=== PATIENT | female | born 1965 | race Caucasian/White ===

== ENCOUNTER 2017-02-20 18:13 | Emergency (ER) | payer OTHER ==
[~2017-02-20] VITALS: Ht 165.1 cm; Wt 105.3 kg
[~2017-02-20 18:13] MED LIST: AMLO10TA2 PO; AMLO5TAB2 PO; GABA300C10 PO; LISI1TAB5 PO; LISI1TAB7 PO; METF10002 PO; METF500T4 PO; PRAV10TA2 PO; PROP40TA PO
--- NOTE | 2017-02-20 18:32 | NUR ---
patient to er room 4 with c/o back pain that shoots down both legs patient denies falls or injury
--- NOTE | 2017-02-20 18:41 | NUR ---
dr levine in room bedside glucose resulted at 344
[2017-02-20] MEDS ORDERED: CATAPRES PO STA (18:45)
[2017-02-20] MEDS ORDERED: NORFLEX IM STA (18:45)
--- NOTE | 2017-02-20 18:48 | ER.PDOC ---
General Chief Complaint: Lower Back Pain or Injury Stated Complaint: BACK PAIN Time seen by MD: 18:38 Source: patient Exam Limitations: no limitations History of Present Illness Initial Comments Pt started with back pain about 10 days ago, after a twisting movement. She also has diabetes and HTN, for which at the moment is not taking any medications Timing/Duration: week Severity/Quality: severe, radiation (RLE) Radiation: buttocks, upper legs, lower legs Method of Injury: twisted Associated Symptoms: muscle spasms, lower back pain Allergies: Coded Allergies: No Known Allergies (Unverified , 11/27/13) Home Meds Reported Medications Pravastatin Sodium (PRAVASTATIN SODIUM) 10 Mg Tablet, 10 MG PO HS, TABLET 03/24/14 Lisinopril/Hydrochlorothiazide (LISINOPRIL-HCTZ 20-25 MG TAB) 1 Each Tablet, 1 EACH PO DAILY, TABLET 03/24/14 Amlodipine Besylate (AMLODIPINE BESYLATE) 10 Mg Tablet, 10 MG PO DAILY, TABLET 03/24/14 Amlodipine Besylate (AMLODIPINE BESYLATE) 5 Mg Tablet, 5 MG PO DAILY, TABLET 03/24/14 Lisinopril/Hydrochlorothiazide (LISINOPRIL-HCTZ 20-12.5 MG TAB) 1 Each Tablet, 2 EACH PO DAILY, TABLET 03/24/14 Metformin Hcl (METFORMIN HCL) 1,000 Mg Tablet, 1000 MG PO BID, TABLET 03/24/14 Metformin Hcl (METFORMIN HCL) 500 Mg Tablet, 500 MG PO BID, TABLET 03/24/14 Propranolol Hcl (PROPRANOLOL HCL) 40 Mg Tablet, 40 MG PO BID, TABLET 03/24/14 Gabapentin (GABAPENTIN) 300 Mg Capsule, 300 MG PO HS, CAPSULE 03/24/14 Past Medical History Medical History: diabetes, hypertension Surgical History: appendectomy, hysterectomy Social History Smoking: non-smoker Alcohol Use: none Drug Use: none Review of Systems Constitutional: see HPI EENTM: see HPI Respiratory: see HPI Cardiovascular: see HPI Gastrointestinal: see HPI Genitourinary: see HPI Musculoskeletal: see HPI Skin: see HPI Psychiatric/Neurological: see HPI Physical Exam General Appearance: No Apparent Distress, WD/WN HEENT: PERRL/EOMI, Normal ENT Inspection, TMs Normal, Pharynx Normal Neck: Non-Tender, Normal Alignment Cardiovascular/Respiratory: Regular Rate, Rhythm, No M/R/G, Normal Peripheral Pulses, No JVD, Normal Breath Sounds, No Respiratory Distress Gastrointestinal: Normal Bowel Sounds, No Organomegaly, No Pulsatile Mass, Non Tender, Soft Back: CVA Tenderness (R), Decreased Range Of Motion, Muscle Spasm, Other (SLRM positive at 10 degrees) Extremities: No Evidence of Injury, Normal Range of Motion, Non-Tender, No Pedal Edema, Pelvis Stable Neuro/Psych: Alert, mental health practitioner nml/symmetrical, mood/effect nml, No Motor/Sensory Deficits, Relexes nml Skin: Normal Color, Warm/Dry Results/Orders Results/Orders Laboratory Tests Test 02/20/17 18:40 Bedside Glucose 344 (70 - 110) Administered Medications Medications (Trade) Dose Ordered Sig/Shahrzad Route PRN Reason Start Time Stop Time Status Last Admin Dose Admin Ketorolac Tromethamine (Toradol) 60 mg OT ONCE IM 02/20/17 19:00 02/20/17 19:01 DC 02/20/17 19:02 Orphenadrine Citrate (Norflex) 60 mg STAT STAT IM 02/20/17 18:45 02/20/17 18:47 DC 02/20/17 18:57 Clonidine (Catapres) 0.2 mg STAT STAT PO 02/20/17 18:45 02/20/17 18:47 DC 02/20/17 18:58 Departure Time of Disposition: 19:19 Disposition: 01 HOME, SELF-CARE Impression: Primary Impression: Low back pain Additional Impression: Lumbar sprain Condition: Stable Patient Instructions: Back Pain, Adult, [id number] Referrals: LISA EARZO EQUIPMENT OPERATING ENGINEER (PCP) PRIMARY CARE PROVIDER Problem Qualifiers LES GARCIA MD February 20, 2017 18:48
[2017-02-20] MEDS ORDERED: NORFLEX ONE (18:49)
[2017-02-20] MEDS ORDERED: CATAPRES ONE (18:49)
[2017-02-20] MEDS ORDERED: TORADOL ONE (18:49)
[2017-02-20] MEDS ORDERED: TORADOL IM ONE (19:00)
[2017-02-20 20:13] VITALS: BP 192/118
== END 2017-02-20 20:14 | disposition home or self-care (01) ==
LOC: ER 18:13
DX: S33.5XXA Sprain of ligaments of lumbar spine, initial encounter (principal); E11.9 Type 2 diabetes mellitus without complications; I10 Essential (primary) hypertension; Z79.899 Other long term (current) drug therapy; X50.1XXA Overexertion from prolonged static or awkward postures, initial encounter; Y93.89 Activity, other specified; Y92.89 Other specified places as the place of occurrence of the external cause; Y99.8 Other external cause status
CPT/HCPCS: 82948; 96372 ×2; 99284; J1885; J2360

== ENCOUNTER 2017-08-05 10:09 | Emergency (ER) | payer OTHER ==
[~2017-08-05] VITALS: Ht 165.1 cm; Wt 104.3 kg
--- NOTE | 2017-08-05 10:28 | NUR ---
[facility]IVAL PATIENT ARRIVED TO ED4 AMBULATORY, C/O OF LEFT EYE SWELLING SINCE GETTING OUT OF BED THIS MORNING, DENIES ANY INJURY, VISION BLURRY AT TIMES. NO OTHER COMPLAINTS AT THIS TIME.
--- NOTE | 2017-08-05 10:42 | ER.PDOC ---
General Chief Complaint: Eye Problems Stated Complaint: LEFT EYE TROUBLE Time seen by MD: 10:32 Source: patient Exam Limitations: no limitations History of Present Illness Initial Comments Left upper eyelid swelling and painful this morning Timing/Duration: abrupt Location: right eye Severity: moderate Allergies: Coded Allergies: No Known Allergies (Unverified , 11/27/13) Home Meds Reported Medications Pravastatin Sodium (PRAVASTATIN SODIUM) 10 Mg Tablet, 10 MG PO HS, TABLET 03/24/14 Lisinopril/Hydrochlorothiazide (LISINOPRIL-HCTZ 20-25 MG TAB) 1 Each Tablet, 1 EACH PO DAILY, TABLET 03/24/14 Amlodipine Besylate (AMLODIPINE BESYLATE) 10 Mg Tablet, 10 MG PO DAILY, TABLET 03/24/14 Amlodipine Besylate (AMLODIPINE BESYLATE) 5 Mg Tablet, 5 MG PO DAILY, TABLET 03/24/14 Lisinopril/Hydrochlorothiazide (LISINOPRIL-HCTZ 20-12.5 MG TAB) 1 Each Tablet, 2 EACH PO DAILY, TABLET 03/24/14 Metformin Hcl (METFORMIN HCL) 1,000 Mg Tablet, 1000 MG PO BID, TABLET 03/24/14 Metformin Hcl (METFORMIN HCL) 500 Mg Tablet, 500 MG PO BID, TABLET 03/24/14 Propranolol Hcl (PROPRANOLOL HCL) 40 Mg Tablet, 40 MG PO BID, TABLET 03/24/14 Gabapentin (GABAPENTIN) 300 Mg Capsule, 300 MG PO HS, CAPSULE 03/24/14 Past Medical History Medical History: diabetes, high cholesterol, hypertension Surgical History: appendectomy, hysterectomy Social History Smoking: non-smoker Alcohol Use: none Drug Use: none Constitutional: no symptoms reported Eyes: see HPI Respiratory: no symptoms reported Cardiovascular: no symptoms reported Gastrointestinal: no symptoms reported Musculoskeletal: no symptoms reported All Other Systems: Reviewed and Negative Physical Exam General Appearance: alert, no distress Eyelid: (L) edema (upper without eye discharge or redness. Mildly tender to palpation.) Conjunctiva/Sclera: nml inspection Corneas: nml inspection EOM's: intact, no nystagmus Pupils: PERRL, nml accommodation Neck/Back: nml inspection, painless ROM Resp/CVS: no resp distress, lungs clear, heart sounds nml, reg. rate & rhythm Abdomen: non-tender, no organomegaly NEURO/PSYCH: oriented X3, mood/effect nml Departure Time of Disposition: 10:37 Disposition: 01 HOME, SELF-CARE Impression: Primary Impression: Infected eye lid Additional Impression: Acute pain Condition: Stable Referrals: LISA TOMAS LUBRICATING MACHINE TENDER (PCP) PRIMARY CARE PROVIDER Additional Instructions: Bactrim DS Prednisone Benadryl F/U with Director [facility] tomorrow. PERCY HECTOR MD Aug 05, 2017 10:42
[2017-08-05 10:52] VITALS: BP 151/100
== END 2017-08-05 10:52 | disposition home or self-care (01) ==
LOC: ER 10:09
DX: H01.8 Other specified inflammations of eyelid (principal); E11.9 Type 2 diabetes mellitus without complications; E78.00 Pure hypercholesterolemia, unspecified; I10 Essential (primary) hypertension; Z90.710 Acquired absence of both cervix and uterus; Z79.899 Other long term (current) drug therapy
CPT/HCPCS: 99283

== ENCOUNTER 2018-04-26 10:20 | Emergency (ER) | payer OTHER ==
[~2018-04-26] VITALS: Ht 165.1 cm; Wt 106.6 kg
[~2018-04-26 10:20] MED LIST changes: -METF10002 PO; +METF10003 PO; -METF500T4 PO; +METF500T5 PO
[2018-04-26 10:33] VITALS: BP 189/102
--- NOTE | 2018-04-26 10:43 | ER.PDOC ---
General Chief Complaint: Toothache Stated Complaint: TOOTHACHE Time seen by MD: 10:33 Source: patient Exam Limitations: no limitations History of Present Illness Timing/Duration: last week Associated Symptoms: toothache, facial pain, swollen jaw, jaw pain (R) Severity: mild Prior symptoms/Treatment: Similar symptoms previous Allergies: Coded Allergies: No Known Allergies (Unverified , 11/27/13) Home Meds Reported Medications Pravastatin Sodium (PRAVASTATIN SODIUM) 10 Mg Tablet, 10 MG PO HS, TABLET 03/24/14 Lisinopril/Hydrochlorothiazide (LISINOPRIL-HCTZ 20-25 MG TAB) 1 Each Tablet, 1 EACH PO DAILY, TABLET 03/24/14 Amlodipine Besylate (AMLODIPINE BESYLATE) 10 Mg Tablet, 10 MG PO DAILY, TABLET 03/24/14 Amlodipine Besylate (AMLODIPINE BESYLATE) 5 Mg Tablet, 5 MG PO DAILY, TABLET 03/24/14 Lisinopril/Hydrochlorothiazide (LISINOPRIL-HCTZ 20-12.5 MG TAB) 1 Each Tablet, 2 EACH PO DAILY, TABLET 03/24/14 Metformin Hcl (METFORMIN HCL) 1,000 Mg Tablet, 1000 MG PO BID, TABLET 03/24/14 Metformin Hcl (METFORMIN HCL) 500 Mg Tablet, 500 MG PO BID, TABLET 03/24/14 Propranolol Hcl (PROPRANOLOL HCL) 40 Mg Tablet, 40 MG PO BID, TABLET 03/24/14 Gabapentin (GABAPENTIN) 300 Mg Capsule, 300 MG PO HS, CAPSULE 03/24/14 Past Medical History Medical History: diabetes, hypertension Surgical History: hysterectomy LMP (females 10-50): hysterectomy Social History Smoking: non-smoker Alcohol Use: none Drug Use: none Reviewed Nursing Reviewed: Vital Signs, Abn. Noted All Other Systems: Reviewed and Negative Physical Exam Head/Neck: (R) mandibular swelling Eyes: eyes nml inspection, PERRL, no nystagmus Mouth: gum swelling Throat: pharynx nml, voice nml, no airway problems Ears/Nose: nml inspection Respiratory: no resp. distress, lungs clear CVS: reg. rate & rhythm, heart sounds nml Abdomen: non-tender, no organomegaly Extremities: non-tender, ROM nml Skin Exam: Normal Color, Warm/Dry NEURO/PSYCH: oriented X3, mood/effect nml Departure Time of Disposition: 10:55 Disposition: 01 HOME, SELF-CARE Impression: Primary Impression: Abscess of mandible Condition: Stable Referrals: PCP,UNKNOWN (PCP) PRIMARY CARE PROVIDER Duration or Time Spent with Pa: 30 MIN MANUELA MOTLEY MD Apr 26, 2018 10:43
--- NOTE | 2018-04-26 10:57 | ER.PDOC ---
General Chief Complaint: Toothache Stated Complaint: TOOTHACHE Time seen by MD: 10:33 Source: patient Exam Limitations: no limitations History of Present Illness Timing/Duration: 1 week Severity/Quality: moderate Radiation: no radiation Allergies: Coded Allergies: No Known Allergies (Unverified , 11/27/13) Home Meds Reported Medications Pravastatin Sodium (PRAVASTATIN SODIUM) 10 Mg Tablet, 10 MG PO HS, TABLET 03/24/14 Lisinopril/Hydrochlorothiazide (LISINOPRIL-HCTZ 20-25 MG TAB) 1 Each Tablet, 1 EACH PO DAILY, TABLET 03/24/14 Amlodipine Besylate (AMLODIPINE BESYLATE) 10 Mg Tablet, 10 MG PO DAILY, TABLET 03/24/14 Amlodipine Besylate (AMLODIPINE BESYLATE) 5 Mg Tablet, 5 MG PO DAILY, TABLET 03/24/14 Lisinopril/Hydrochlorothiazide (LISINOPRIL-HCTZ 20-12.5 MG TAB) 1 Each Tablet, 2 EACH PO DAILY, TABLET 03/24/14 Metformin Hcl (METFORMIN HCL) 1,000 Mg Tablet, 1000 MG PO BID, TABLET 03/24/14 Metformin Hcl (METFORMIN HCL) 500 Mg Tablet, 500 MG PO BID, TABLET 03/24/14 Propranolol Hcl (PROPRANOLOL HCL) 40 Mg Tablet, 40 MG PO BID, TABLET 03/24/14 Gabapentin (GABAPENTIN) 300 Mg Capsule, 300 MG PO HS, CAPSULE 03/24/14 Vital Signs First Vital Signs Date Time Temp Pulse Resp B/P (MAP) Pulse Ox O2 Delivery O2 Flow Rate FiO2 04/26/18 10:29 98.0 75 20 98 Room Air 98.0 04/26/18 10:33 189/102 (131) Last Vital Signs Date Time Temp Pulse Resp B/P (MAP) Pulse Ox O2 Delivery O2 Flow Rate FiO2 04/26/18 10:33 98.0 75 20 189/102 (131) 98 Room Air 98.0 Past Medical History Medical History: diabetes, hypertension Surgical History: hysterectomy LMP (females 10-50): hysterectomy Social History Smoking: non-smoker Alcohol Use: none Drug Use: none Reviewed Nursing Reviewed: Vital Signs, Abn. Noted All Other Systems: Reviewed and Negative Physical Exam General Appearance: No Apparent Distress, WD/WN HEENT: PERRL/EOMI, Normal ENT Inspection, TMs Normal, Pharynx Normal, Other (r jaw swelling) Neck: Non-Tender, Full Range of Motion, Supple, Normal Inspection Gastrointestinal: Normal Bowel Sounds, Non Tender, Soft Back: Normal Inspection, No CVA Tenderness, No Vertebral Tenderness Extremities: Normal Range of Motion, Non-Tender, Normal Inspection, No Pedal Edema, No Calf Tenderness, Normal Capillary Refill, Pelvis Stable Neurologic/Psychiatric: sinker winder II-XII NML as Tested, No Motor/Sensory Deficits, Alert, Normal Mood/Affect, Oriented x 3 Skin: Normal Color, Warm/Dry Course Vitals & review Data Vital Sign - Last 24 Hours 04/26/18 04/26/18 04/26/18 10:29 10:29 10:33 Temp 98.0 98.0 98.0 98.0 98.0 98.0 Pulse 75 75 75 Resp 20 20 20 B/P (MAP) 189/102 (131) Pulse Ox 98 98 O2 Delivery Room Air Room Air Departure Disposition: HOME, SELF-CARE Impression: Primary Impression: Abscess of mandible Condition: Stable Patient Instructions: Abscessed Tooth, [id number], Amoxicillin capsules or tablets, Ketorolac tablets Referrals: PCP,UNKNOWN (PCP) PRIMARY CARE PROVIDER Additional Instructions: AMOXICILLIN 500MG THREE TIMES A DAY FOR 10 DAYS (#30) TRAMADOL 50MG 1-2 TABLETS EVERY 6 HOURS NEEDED FOR PAIN (#10) FOLLOW UP WITH YOUR DENTIST SOON POSSIBLE. MANUELA MOTLEY MD Apr 26, 2018 10:57
[2018-04-26 11:11] VITALS: BP 189/102
== END 2018-04-26 10:38 | disposition home or self-care (01) ==
LOC: ER 10:20
DX: M27.2 Inflammatory conditions of jaws (principal); E11.9 Type 2 diabetes mellitus without complications; I10 Essential (primary) hypertension; Z90.710 Acquired absence of both cervix and uterus; Z79.84 Long term (current) use of oral hypoglycemic drugs; Z79.899 Other long term (current) drug therapy
CPT/HCPCS: 99283

== ENCOUNTER 2018-06-30 19:20 | Emergency (ER) | payer OTHER ==
[~2018-06-30] VITALS: Ht 165.1 cm; Wt 102.5 kg
[~2018-06-30 19:20] MED LIST changes: -AMLO10TA2 PO; +AMLO10TA6 PO; -AMLO5TAB2 PO; +AMLO5TAB7 PO; -METF10003 PO; +METF10007 PO; +METF500T17 PO; -METF500T5 PO
[2018-06-30 19:34] VITALS: BP 196/134
[2018-06-30] MEDS ORDERED: CATAPRES PO STA (19:50)
[2018-06-30] MEDS ORDERED: ROCEPHIN IM IM STA (19:50)
--- NOTE | 2018-06-30 19:53 | ER.PDOC ---
General Chief Complaint: Toothache Stated Complaint: SWOLLEN JAW Time seen by MD: 19:45 Source: patient Exam Limitations: no limitations History of Present Illness Initial Comments Broken, abscessed tooth on lower right mandible Timing/Duration: gradual Context: fractured tooth Associated Symptoms: toothache, swollen jaw, jaw pain (R) Prior symptoms/Treatment: Similar symptoms previous Allergies: Coded Allergies: No Known Allergies (Unverified , 11/27/13) Home Meds Reported Medications Pravastatin Sodium (PRAVASTATIN SODIUM) 10 Mg Tablet, 10 MG PO HS, TABLET 03/24/14 Lisinopril/Hydrochlorothiazide (LISINOPRIL-HCTZ 20-25 MG TAB) 1 Each Tablet, 1 EACH PO DAILY, TABLET 03/24/14 Amlodipine Besylate (AMLODIPINE BESYLATE) 10 Mg Tablet, 10 MG PO DAILY, TABLET 03/24/14 Amlodipine Besylate (AMLODIPINE BESYLATE) 5 Mg Tablet, 5 MG PO DAILY, TABLET 03/24/14 Lisinopril/Hydrochlorothiazide (LISINOPRIL-HCTZ 20-12.5 MG TAB) 1 Each Tablet, 2 EACH PO DAILY, TABLET 03/24/14 Metformin Hcl (METFORMIN HCL) 1,000 Mg Tablet, 1000 MG PO BID, TABLET 03/24/14 Metformin Hcl (METFORMIN HCL) 500 Mg Tablet, 500 MG PO BID, TABLET 03/24/14 Propranolol Hcl (PROPRANOLOL HCL) 40 Mg Tablet, 40 MG PO BID, TABLET 03/24/14 Gabapentin (GABAPENTIN) 300 Mg Capsule, 300 MG PO HS, CAPSULE 03/24/14 Past Medical History Medical History: diabetes, hypertension Surgical History: no surgical history Social History Smoking: non-smoker Alcohol Use: none Drug Use: none Constitutional: no symptoms reported Eyes: no symptoms reported Ears: no symptoms reported Nose: no symptoms reported Mouth: see HPI Throat: no symptoms reported Respiratory: no symptoms reported Cardiovascular: no symptoms reported Gastrointestinal: no symptoms reported Musculoskeletal: no symptoms reported Skin: no symptoms reported Neurological: no symptoms reported Hematologic/Lymphatic: no symptoms reported Immunological/Allergic: no symptoms reported Physical Exam General Appearance: alert, no distress Head/Neck: head nml inspection, neck nml inspection, trachea midline, no lymphadenopathy, thyroid nml, swelling (face, right) Eyes: eyes nml inspection, PERRL, no nystagmus Mouth: dental tenderness, gum swelling, widespread dental decay Throat: pharynx nml, voice nml, no airway problems Ears/Nose: nml inspection Respiratory: no resp. distress, lungs clear CVS: reg. rate & rhythm, heart sounds nml Abdomen: non-tender, no organomegaly Extremities: non-tender, ROM nml Skin Exam: Normal Color, Warm/Dry NEURO/PSYCH: oriented X3, mood/effect nml Departure Time of Disposition: 19:55 Disposition: 01 HOME, SELF-CARE Impression: Primary Impression: Acute pain Additional Impression: Abscess of mandible Condition: Stable Patient Instructions: Dental Abscess, Dental Caries Referrals: PCP,UNKNOWN (PCP) PRIMARY CARE PROVIDER Duration or Time Spent with Pa: 10 LES GARCIA MD Jun 30, 2018 19:53
[2018-06-30] MEDS ORDERED: ROCEPHIN ONE (19:58)
[2018-06-30] MEDS ORDERED: TORADOL ONE (19:58)
[2018-06-30] MEDS ORDERED: CATAPRES ONE (19:58)
[2018-06-30] MEDS ORDERED: TORADOL IM ONE (20:00)
--- NOTE | 2018-06-30 20:15 | NUR ---
DISCHARGE INSTRUCTIONS INFORMATION FOR DENTIST IN [place] PROVIDED TO PATIENT. PATIENT VOICED APPRECIATION DENIES FURTHER QUESTIONS OR CONCENRS.
[2018-06-30 20:17] VITALS: BP 168/99
== END 2018-06-30 20:15 | disposition home or self-care (01) ==
LOC: ER 19:20
DX: M27.2 Inflammatory conditions of jaws (principal); E11.9 Type 2 diabetes mellitus without complications; I10 Essential (primary) hypertension; Z79.84 Long term (current) use of oral hypoglycemic drugs; Z79.899 Other long term (current) drug therapy
CPT/HCPCS: 96372 ×2; 99284; J0696; J1885

== ENCOUNTER 2019-07-26 20:04 | Emergency (ER) | payer OTHER ==
[~2019-07-26] VITALS: Ht 165.1 cm; Wt 104.3 kg
[~2019-07-26 20:04] MED LIST changes: -AMLO10TA6 PO; +AMLO10TA8 PO; +AMLO5TAB10 PO; -AMLO5TAB7 PO; +LISI1TAB19 PO; +LISI1TAB20 PO; -LISI1TAB5 PO; -LISI1TAB7 PO
--- NOTE | 2019-07-26 20:30 | NUR ---
[facility] PATIENT WAS DIZZY AND FELL YESTERDAY. MILD ABRASION TO LEFT ELBOW NOTED. NO OTHER SYMPTOMS OR CHANGES UNTIL THIS MORNING. PATIENT NOTED SWELLING TO LEFT FACE. INCREASING IN SIZE GRADUALLY. COMPLAINED OF NAUSEA. ACCORDING TO PATIENT, SHE MISSED TAKING HER MEDICATION FOR HIGH BLOOD PRESSURE FOR 2 DAYS UNTIL TODAY.
[2019-07-26 20:41] VITALS: BP 145/89
[2019-07-26 21:20] VITALS: BP 129/80
--- NOTE | 2019-07-26 21:38 | ER.PDOC ---
General Chief Complaint: Head, Face, Neck Trauma Stated Complaint: FALL/L SWOLLEN FACE TRAVEL OUT OF US: No Time seen by MD: 21:38 Source: patient, family Exam Limitations: no limitations History of Present Illness Initial Comments 53 Y/O F WITH HX TYPE 2 DM AND HTN, STATES HAS NOT TAKEN HER MEDS RXED, YESTERDAY SLIPPED IN SNOW AND FELL WITH LEFT ELBOW PAIN, NO OTHER INJURY. TODAY NOTED THAT RIGHT SIDE OF FACE WAS SWOLLEN BUT HAS NO PAIN. SHE AGREES TO NAUSEA BUT NO OTHER SYMPTOMS. NO DENTAL PAIN, NO GUPTA, NO FEVER, NO HEAD OR NECK PAIN, ONLY PAIN IS LEFT ELBOW. NO VOMITING OR DIARRHEA., NO CHEST PAIN, NO ABD PAIN. STATES HE HAD A STOMACH BUG LAST WEEK. Severity: mild Associated Symptoms: loss of appetite Allergies: Coded Allergies: No Known Allergies (Unverified , 11/27/13) Home Meds Reported Medications Pravastatin Sodium (PRAVASTATIN SODIUM) 10 Mg Tablet, 10 MG PO HS, TABLET 03/24/14 Lisinopril/Hydrochlorothiazide (LISINOPRIL-HCTZ 20-25 MG TAB) 1 Each Tablet, 1 E ACH PO DAILY, TABLET 03/24/14 Amlodipine Besylate (AMLODIPINE BESYLATE) 10 Mg Tablet, 10 MG PO DAILY, TABLET 03/24/14 Amlodipine Besylate (AMLODIPINE BESYLATE) 5 Mg Tablet, 5 MG PO DAILY, TABLET 03/24/14 Lisinopril/Hydrochlorothiazide (LISINOPRIL-HCTZ 20-12.5 MG TAB) 1 Each Tablet, 2 EACH PO DAILY, TABLET 03/24/14 Metformin Hcl (METFORMIN HCL) 1,000 Mg Tablet, 1000 MG PO BID, TABLET 03/24/14 Metformin Hcl (METFORMIN HCL) 500 Mg Tablet, 500 MG PO BID, TABLET 03/24/14 Propranolol Hcl (PROPRANOLOL HCL) 40 Mg Tablet, 40 MG PO BID, TABLET 03/24/14 Gabapentin (GABAPENTIN) 300 Mg Capsule, 300 MG PO HS, CAPSULE 03/24/14 Past Medical History Medical History: diabetes, hypertension, other Surgical History: appendectomy, other Family History Significant Family History: no pertinent family hx Social History Smoking: non-smoker Alcohol Use: none Drug Use: none Reviewed Nursing Reviewed: Vital Signs, Abn. Noted, Nursing Assessment Review of Systems Constitutional: no symptoms reported EENTM: no symptoms reported Respiratory: no symptoms reported Cardiovascular: no symptoms reported Gastrointestinal: no symptoms reported Genitourinary: no symptoms reported Musculoskeletal: joint pain Skin: no symptoms reported Psychiatric/Neurological: no symptoms reported Hematologic/Lymphatic: no symptoms reported Immunological/Allergic: no symptoms reported Physical Exam General Appearance: No Apparent Distress EENT: eyes nml inspection, pharynx nml, other Neck: Non-Tender Respiratory: chest non-tender, lungs clear, normal breath sounds, no respiratory distress, no accessory muscle use CVS: reg rate & rhythm Gastrointestinal: Normal Bowel Sounds, No Organomegaly, No Pulsatile Mass, Non Tender Back: Normal Inspection, No CVA Tenderness, No Vertebral Tenderness Extremities: Normal Range of Motion, Other Neurologic/Psychiatric: cloth drier II-XII NML as Tested, No Motor/Sensory Deficits, Alert, Normal Mood/Affect, Oriented x 3 Skin: Normal Color, Warm/Dry Lymphatic: No Adenopathy Comments FACE--LEFT SIDE OF FACE-NOTED SWELLING, NO REDNESS, NOTED POOR DENTAL HYGIENE, NO PALP FACIAL PAIN. LEFT ELBOW-MIN ABRASION POST LEFT ELBOW, NL ROM WITH MIN PAIN. LEFT ARM N/V/S INTACT. Results/Orders Results/Orders Orders - DIANA BERNAL DO Xr Elbow Lt (07/26/19 21:38) Blood Glucose Assessment (07/26/19 21:38) Ondansetron (Zofran Odt) (07/26/19 22:00) Ondansetron (Zofran Odt) (07/26/19 21:44) Bedside Glucose (07/26/19 21:48) Vital Signs Date Time Temp Pulse Resp B/P (MAP) Pulse Ox O2 Delivery O2 Flow Rate FiO2 07/26/19 21:20 98.4 108 17 129/80 (96) 94 Room Air 07/26/19 20:41 98.4 118 16 145/89 (107) 94 Room Air 07/26/19 20:41 16 07/26/19 20:37 98.4 118 16 94 Room Air Administered Medications Medications (Trade) Dose Ordered Sig/Shahrzad Route PRN Reason Start Time Stop Time Status Last Admin Dose Admin Ondansetron HCl (Zofran Odt) 4 mg STAT PRN SL NAUSEA / VOMITING 07/26/19 22:00 08/25/19 21:59 07/26/19 21:50 4 MG Laboratory Tests Test 07/26/19 21:48 POC Glucose 254 (70 - 110) H Progress Progress NOTE- DISCUSSED WITH PATIENT AND NOT SURE WHY SHE HAS NAUSEA, AND WHY FACE IS SWOLLEN, DIFF DX IN DETAIL, FURTHER WORK UP DISCUSSED, PATIENT AND WANT TO GO HOME, PATIENT DOES HAVE THE CAPACITY TO UNDERSTAND, AND WILL RETURN IF WORSE IN ANY WAY. TOLD PATIENT TO TAKE HER MEDS AND DRINK MORE WATER. Course Duration or Total Time Spent w: 10 Vitals & review Data Vital Sign - Last 24 Hours 07/26/19 07/26/19 07/26/19 07/26/19 20:37 20:41 20:41 21:20 Temp 98.4 98.4 98.4 Pulse 118 118 108 Resp 16 16 16 17 B/P (MAP) 145/89 (107) 129/80 (96) Pulse Ox 94 94 94 O2 Delivery Room Air Room Air Room Air Laboratory Tests Test 07/26/19 21:48 Bedside Glucose 254 Current Medications Medications (Trade) Dose Ordered Sig/Shahrzad PRN Reason Start Time Stop Time Status Last Admin Ondansetron HCl (Zofran Odt) 4 mg STAT PRN NAUSEA / VOMITING 07/26/19 22:00 08/25/19 21:59 07/26/19 21:50 O2 Sat by Pulse Oximetry: 94 Departure Time of Disposition: 22:12 Disposition: 01 HOME, SELF-CARE Impression: Primary Impression: Left elbow contusion Additional Impressions: Dental infection Swelling of face Condition: Stable Patient Instructions: Dental Caries Referrals: PCP,UNKNOWN (PCP) PRIMARY CARE PROVIDER Additional Instructions: TO ED IF WORSE OR NO BETTER, DRINK MORE WATER AND TAKE YOUR MEDICATIONS RXED. FOLLOW UP WITH YOUR PCP AND DENTIST. FOLLOW YOUR BLOOD SUGAR, RX PCN ALONZO JIMENEZ Duration or Time Spent with Pa: 20 MIN Problem Qualifiers DIANA BERNAL DO Jul 26, 2019 21:38
[2019-07-26] MEDS ORDERED: ZOFRAN ODT ONE (21:44)
--- NOTE | 2019-07-26 21:54 | DIREP ---
PROCEDURE:XRAY ELBOW 2VWS-LT COMPARISON:None. INDICATIONS:fall left elbow pain FINDINGS: BONES:Normal. JOINTS:Normal. No displaced anterior or posterior fat pads. SOFT TISSUES:Normal. OTHER:Normal. CONCLUSION:Normal examination. Dictated by: Luis Reynaga M.D. on 07/26/2019 at 09:51 PM
[2019-07-26] MEDS ORDERED: ZOFRAN ODT SL PRN (22:00)
[2019-07-26 22:28] VITALS: BP 120/101
== END 2019-07-26 22:28 | disposition home or self-care (01) ==
LOC: ER 20:04
DX: S50.02XA Contusion of left elbow, initial encounter (principal); K04.7 Periapical abscess without sinus; R22.0 Localized swelling, mass and lump, head; I10 Essential (primary) hypertension; E11.9 Type 2 diabetes mellitus without complications; Z79.899 Other long term (current) drug therapy; Z90.49 Acquired absence of other specified parts of digestive tract; W00.2XXA Other fall from one level to another due to ice and snow, initial encounter; Y93.89 Activity, other specified; Y92.89 Other specified places as the place of occurrence of the external cause; Y99.8 Other external cause status
CPT/HCPCS: 73070; 82948; 99284; Q0162

== ENCOUNTER 2019-09-26 16:23 | Emergency (ER) | payer OTHER ==
[~2019-09-26] VITALS: Ht 165.1 cm; Wt 104.8 kg
--- NOTE | 2019-09-26 17:00 | NUR ---
[facility] PT ARRIVED TO ER AMBULATORY ACCOMPANIED BY AN[facility]EL[facility]. PT C/O LEFT KNEE AND SHOULDER PAIN POST FALL X 2 WEEKS AGO. PT ASSESSED AND PLACED BACK IN WAITING ROOM UNTIL ER ROOM BECOMES AVAILABLE.
[2019-09-26 17:04] VITALS: BP 178/124
[2019-09-26 17:07] VITALS: BP 178/124
--- NOTE | 2019-09-26 17:09 | NUR ---
TRANSFER TO ER 6 PT TAKEN TO ER 6. REPORT GIVEN TO NURSE AND DR. MOTLEY.
--- NOTE | 2019-09-26 17:43 | DIREP ---
PROCEDURE:XRAY KNEE 3 VIEWS-LT COMPARISON:None. INDICATIONS:FALL FINDINGS: BONES:Normal. JOINTS:Normal. SOFT TISSUES:Normal. OTHER:No additional findings. CONCLUSION:No acute or significant chronic bony abnormality. Dictated by: Nancy Desai MD on 09/26/2019 at 05:41 PM
--- NOTE | 2019-09-26 18:06 | ER.PDOC ---
General Chief Complaint: General Complaint Stated Complaint: FELL INJURED LEFT SHOULDER AND LEFT KNEE Time seen by MD: 18:00 Source: patient Exam Limitations: no limitations History of Present Illness Occurred: last week Where: home Severity: moderate Injuries/Pain Location: upper extremity, lower extremity Context: Lost Balance Loss of Consciousness: No Loss of Consciousness Modifying Factors: improves with immobilization, improves with pain medication, improves with rest Allergies: Coded Allergies: No Known Allergies (Unverified , 11/27/13) MEDS Reported Medications Pravastatin Sodium (PRAVASTATIN SODIUM) 10 Mg Tablet, 10 MG PO HS, TABLET 03/24/14 Lisinopril/Hydrochlorothiazide (LISINOPRIL-HCTZ 20-25 MG TAB) 1 Each Tablet, 1 EACH PO DAILY, TABLET 03/24/14 Amlodipine Besylate (AMLODIPINE BESYLATE) 10 Mg Tablet, 10 MG PO DAILY, TABLET 03/24/14 Amlodipine Besylate (AMLODIPINE BESYLATE) 5 Mg Tablet, 5 MG PO DAILY, TABLET 03/24/14 Lisinopril/Hydrochlorothiazide (LISINOPRIL-HCTZ 20-12.5 MG TAB) 1 Each Tablet, 2 EACH PO DAILY, TABLET 03/24/14 Metformin Hcl (METFORMIN HCL) 1,000 Mg Tablet, 1000 MG PO BID, TABLET 03/24/14 Metformin Hcl (METFORMIN HCL) 500 Mg Tablet, 500 MG PO BID, TABLET 03/24/14 Propranolol Hcl (PROPRANOLOL HCL) 40 Mg Tablet, 40 MG PO BID, TABLET 03/24/14 Gabapentin (GABAPENTIN) 300 Mg Capsule, 300 MG PO HS, CAPSULE 03/24/14 Past Medical History Medical History: diabetes, hypertension Surgical History: appendectomy, hysterectomy Social History Alcohol Use: none Drug Use: none Reviewed Nursing Reviewed: Vital Signs, Abn. Noted Review of Systems All Other Systems: Reviewed and Negative Physical Exam General Appearance: No Apparent Distress, WD/WN Head: No Evidence of Injury Ears, Nose, Mouth, Throat: Hearing Grossly Normal, No Evidence of ENT Injury, No Dental Injury Neck: Non-Tender, Normal Alignment, Nexus criteria neg, Normal Inspection Cardiovascular/Respiratory: Regular Rate, Rhythm, No M/R/G, Normal Peripheral Pulses, No JVD, Normal Breath Sounds, No Respiratory Distress Gastrointestinal: Normal Bowel Sounds, No Organomegaly, No Pulsatile Mass, Non Tender, Soft Back: Normal Inspection, No CVA Tenderness, No Vertebral Tenderness Extremities: Bony-Point Tenderness, Joint Effusion, Pain With Movement, Tenderness 1 - TENDERNESS 2 - TENDERNESS Neurologic/Psychiatric: physician/allergy/immunology II-XII NML as Tested, No Motor/Sensory Deficits, Alert, Normal Mood/Affect, Oriented x 3 Skin: Normal Color, Warm/Dry Bryn Coma Score Ericson Total: 15 Splinting Splinting : Pre-Made Type: knee immobilizer Results/Orders Results/Orders Orders - MANUELA MOTLEY MD Xr Knee Lt 3v (09/26/19 17:17) Vital Signs Date Time Temp Pulse Resp B/P (MAP) Pulse Ox O2 Delivery O2 Flow Rate FiO2 09/26/19 17:07 97.1 110 16 178/124 (142) 97 Room Air 09/26/19 17:04 97.1 110 16 09/26/19 16:55 97.1 110 16 97 Departure Time of Disposition: 18:11 Disposition: 01 HOME, SELF-CARE Impression: Primary Impression: Knee MCL sprain Additional Impression: Rotator cuff (capsule) sprain Condition: Improved Referrals: LISA TOMAS TOOL DESIGN DRAFTSPERSON (PCP) PRIMARY CARE PROVIDER Duration or Time Spent with Pa: 16 Problem Qualifiers MANUELA MOTLEY MD Sep 26, 2019 18:06
== END 2019-09-26 18:30 | disposition home or self-care (01) ==
LOC: ER 16:23
DX: S83.92XA Sprain of unspecified site of left knee, initial encounter (principal); S43.422A Sprain of left rotator cuff capsule, initial encounter; I10 Essential (primary) hypertension; E11.9 Type 2 diabetes mellitus without complications; Z79.899 Other long term (current) drug therapy; W18.39XA Other fall on same level, initial encounter; Y93.89 Activity, other specified; Y92.89 Other specified places as the place of occurrence of the external cause; Y99.8 Other external cause status
CPT/HCPCS: 29505; 99284; 73562-LT

== ENCOUNTER 2020-02-17 16:05 | Emergency (ER) | payer OTHER ==
[~2020-02-17] VITALS: Ht 167.6 cm; Wt 104.8 kg
[2020-02-17 16:51] VITALS: BP 138/88
[2020-02-17] MEDS ORDERED: KENALOG-40 IM STA (16:54)
[2020-02-17] MEDS ORDERED: TORADOL IM STA (16:54)
[2020-02-17] MEDS ORDERED: TORADOL ONE (16:55)
[2020-02-17] MEDS ORDERED: KENALOG-40 ONE (16:56)
[2020-02-17 17:11] LABS: BASOPHIL % 0.3 % (0.0-0.2); EOSINOPHIL # 0.1 10^3/uL (0.0-0.2); EOSINOPHIL % 0.7 % (0.0-5.0); LYMPHOCYTES # 2.46 10^3/uL1 (1.0-4.8); LYMPHOCYTES % 25.9 % (24.0-44.0); MEAN CORP HGB 28.1 pg (26-34); MONOCYTES # 0.5 10^3/uL (0.3-0.8); MONOCYTES % 4.7 % (5.0-12.0); NEUTROPHIL # 6.4 10^3/uL (1.8-7.7); PLATELET COUNT 242 10^3/uL (150-400); RED CELL DISTRIBUTION WIDTH 13.3 % (11.5-14.5)
--- NOTE | 2020-02-17 17:12 | ER.PDOC ---
General Chief Complaint: Requesting Medical Care Stated Complaint: RIGHT FOOT SWOLLEN Time seen by MD: 17:10 Source: patient Exam Limitations: no limitations History of Present Illness Initial Comments Right toe/foot pain since this morning of sudden onset. No injury. Onset: this morning Where: home Severity: moderate Exacerbated By: walking movement Relieved By: nothing Allergies: Coded Allergies: No Known Allergies (Unverified , 11/27/13) Home Meds Reported Medications Pravastatin Sodium (PRAVASTATIN SODIUM) 10 Mg Tablet, 10 MG PO HS, TABLET 03/24/14 Lisinopril/Hydrochlorothiazide (LISINOPRIL-HCTZ 20-25 MG TAB) 1 Each Tablet, 1 EACH PO DAILY, TABLET 03/24/14 Amlodipine Besylate (AMLODIPINE BESYLATE) 10 Mg Tablet, 10 MG PO DAILY, TABLET 03/24/14 Amlodipine Besylate (AMLODIPINE BESYLATE) 5 Mg Tablet, 5 MG PO DAILY, TABLET 03/24/14 Lisinopril/Hydrochlorothiazide (LISINOPRIL-HCTZ 20-12.5 MG TAB) 1 Each Tablet, 2 EACH PO DAILY, TABLET 03/24/14 Metformin Hcl (METFORMIN HCL) 1,000 Mg Tablet, 1000 MG PO BID, TABLET 03/24/14 Metformin Hcl (METFORMIN HCL) 500 Mg Tablet, 500 MG PO BID, TABLET 03/24/14 Propranolol Hcl (PROPRANOLOL HCL) 40 Mg Tablet, 40 MG PO BID, TABLET 03/24/14 Gabapentin (GABAPENTIN) 300 Mg Capsule, 300 MG PO HS, CAPSULE 03/24/14 Past Medical History Medical History: diabetes, hypertension Surgical History: hysterectomy Social History Alcohol Use: none Drug Use: none Review of Systems Constitutional: no symptoms reported Respiratory: no symptoms reported Cardiovascular: no symptoms reported Gastrointestinal: no symptoms reported Musculoskeletal: see HPI All Other Systems: Reviewed and Negative Physical Exam General Appearance: Alert, No Apparent Distress Lower Extremity: tenderness (base of right first toe/foot with mild redness), swelling Vascular: no vascular compromise, pulses full/equal Neuro/Psych: sensation nml, motor nml, oriented x3, CN's nml as tested, mood/affect nml Skin: color nml, warm/dry, no rash Back/Neck: nml inspection EENT: eyes inspection nml Respiratory: no resp distress, breath sounds nml CVS: reg rate & rhythm, heart sounds nml Abdomen: non-tender, no organomegaly, no bruit/mass Results/Orders Results/Orders Orders - PERCY HECTOR MD Ketorolac Tromethamine (Toradol) (02/17/20 16:55) Triamcinolone Acetonide (Kenalog-40) (02/17/20 16:56) Cbc With Auto Diff (02/17/20 16:54) Basic Metabolic Panel (02/17/20 16:54) Uric Acid (02/17/20 16:54) Xr Foot Rt (02/17/20 16:54) Ketorolac Tromethamine (Toradol) (02/17/20 16:54) Triamcinolone Acetonide (Kenalog-40) (02/17/20 16:54) Vital Signs Date Time Temp Pulse Resp B/P (MAP) Pulse Ox O2 Delivery O2 Flow Rate FiO2 02/17/20 16:51 98.0 84 22 98 Administered Medications Medications (Trade) Dose Ordered Sig/Shahrzad Route PRN Reason Start Time Stop Time Status Last Admin Dose Admin Ketorolac Tromethamine (Toradol) 60 mg STAT STAT IM 02/17/20 16:54 02/17/20 16:59 DC 02/17/20 17:06 60 MG Triamcinolone Acetonide (Kenalog-40) 40 mg STAT STAT IM 02/17/20 16:54 02/17/20 16:59 DC 02/17/20 17:06 40 MG Laboratory Tests Test 02/17/20 17:05 White Blood Count 9.5 10^3/uL (4.5-11.0) Red Blood Count 5.13 10^6/uL (4.00-5.20) Hemoglobin 14.4 g/dL (12.0-15.0) Hematocrit 42.0 % (36.0-46.0) Mean Corpuscular Volume 81.9 fL (78-100) Mean Corpuscular Hemoglobin 28.1 pg (26-34) Mean Corpuscular Hemoglobin Concent 34.3 g/dL (33-36.5) Red Cell Distribution Width 13.3 % (11.5-14.5) Platelet Count 242 10^3/uL (150-400) Mean Platelet Volume 10.1 fL (7.8-11.0) Neutrophils (%) (Auto) 68.0 % (41.0-85.0) Lymphocytes (%) (Auto) 25.9 % (24.0-44.0) Monocytes (%) (Auto) 4.7 % (5.0-12.0) L Neutrophils # (Auto) 6.4 10^3/uL (1.8-7.7) Lymphocytes # (Auto) 2.46 10^3/uL1 (1.0-4.8) Monocytes # (Auto) 0.5 10^3/uL (0.3-0.8) Absolute Immature Granulocyte (auto 0.04 10^3 u/L (0-2) Absolute Eosinophils (auto) 0.1 10^3/uL (0.0-0.2) Immature Granulocytes % 0.40 % (0.00-0.50) Eosinophils % 0.7 % (0.0-5.0) Basophils % 0.3 % (0.0-0.2) H Basophils # 0.0 10^3/uL (0.0-0.1) Sodium Level 138 mmol/L (132-145) Potassium Level 4.2 mmol/L (3.6-5.2) Chloride Level 100.0 mmol/L (96-109) Carbon Dioxide Level 27.6 mmol/L (20.0-32) Glucose Level 265 mg/dL (70-110) H Blood Urea Nitrogen 11 mg/dL (7-18) Creatinine 0.98 mg/dL (0.59-1.40) Calcium Level 9.3 mg/dL (8.4-10.5) Anion Gap 14.6 Estimated GFR () 71.8 (>/=60) Est GFR (CKD-EPI)(Non-Afr Moldovan) 59.4 (>/=60) BUN/Creatinine Ratio 11.0 Uric Acid 8.2 mg/dL (2.6-6.0) H EKG/XRAY/CT/US XRAY Comments: Nothing acute on right foot X rays Departure Time of Disposition: 18:19 Disposition: 01 HOME, SELF-CARE Impression: Primary Impression: Acute gout Condition: Stable Referrals: LISA TOMAS DIRECTOR BIOSTATISTICS (PCP) PRIMARY CARE PROVIDER Additional Instructions: Indomethacin F/U with your PCP in 2-3 days Return to ED if worsening symptoms or concerns Duration or Time Spent with Pa: 45 min Problem Qualifiers Primary Impression: Acute gout Gout site: foot Gout etiology: unspecified cause Laterality: right Qualified Codes: M10.9 - Gout, unspecified PERCY HECTOR MD February 17, 2020 17:12
[2020-02-17 17:41] LABS: CALCIUM 9.3 mg/dL (8.4-10.5); CARBON DIOXIDE 27.6 mmol/L (20.0-32)
--- NOTE | 2020-02-17 17:46 | DIREP ---
PROCEDURE:XRAY FOOT MIN 3 VWS-RT COMPARISON:None. INDICATIONS:Pain 1st toe FINDINGS: BONES:Normal. JOINTS:Normal. SOFT TISSUES:Normal. OTHER:Heterotopic ossification and spurring in the calcaneus and plantar fascia. CONCLUSION:No acute findings. Chronic or incidental findings as above. Dictated by: Isaiah Navarro MD on 02/17/2020 at 05:35 PM
== END 2020-02-17 18:40 | disposition home or self-care (01) ==
LOC: ER 16:05
DX: M10.9 Gout, unspecified (principal); E11.9 Type 2 diabetes mellitus without complications; I10 Essential (primary) hypertension; Z79.1 Long term (current) use of non-steroidal anti-inflammatories (NSAID); Z90.710 Acquired absence of both cervix and uterus; Z79.899 Other long term (current) drug therapy
CPT/HCPCS: 36415; 73630; 80048; 84550; 85025; 96372; 99284; J1885; J3301

== ENCOUNTER 2020-06-14 09:39 | Emergency (ER) | payer OTHER ==
[~2020-06-14] VITALS: Ht 165.1 cm; Wt 108.9 kg
[~2020-06-14 09:39] MED LIST changes: -LISI1TAB19 PO; +LISI1TAB39 PO
[2020-06-14 09:54] VITALS: BP 134/104
--- NOTE | 2020-06-14 09:57 | NUR ---
ARRIVAL PATIENT ARRIVED TO ED6 AMBULATORY, C/O OF COUGH AND RUNNY FOR THE PAST 4 DAYS, DENIES TAKING ANY MEDICATIONS CVOR NURSE, CAME TO THE ED FOR EVAL.
--- NOTE | 2020-06-14 10:12 | ER.PDOC ---
General Chief Complaint: Cough/Congestion Stated Complaint: COUGH,SORE THROAT,RUNNY NOSE Time seen by MD: 10:08 Source: patient Exam Limitations: no limitations History of Present Illness Initial Comments Cough, congestion and sore throat for 5 days. Timing/Duration: gradual Severity: moderate Associated Symptoms: runny nose, sore throat, cough Allergies: Coded Allergies: No Known Allergies (Unverified , 11/27/13) Home Meds Reported Medications Pravastatin Sodium (PRAVASTATIN SODIUM) 10 Mg Tablet, 10 MG PO HS, TABLET 03/24/14 Lisinopril/Hydrochlorothiazide (LISINOPRIL-HCTZ 20-25 MG TAB) 1 Each Tablet, 1 EACH PO DAILY, TABLET 03/24/14 Amlodipine Besylate (AMLODIPINE BESYLATE) 10 Mg Tablet, 10 MG PO DAILY, TABLET 03/24/14 Amlodipine Besylate (AMLODIPINE BESYLATE) 5 Mg Tablet, 5 MG PO DAILY, TABLET 03/24/14 Lisinopril/Hydrochlorothiazide (LISINOPRIL-HCTZ 20-12.5 MG TAB) 1 Each Tablet, 2 EACH PO DAILY, TABLET 03/24/14 Metformin Hcl (METFORMIN HCL) 1,000 Mg Tablet, 1000 MG PO BID, TABLET 03/24/14 Metformin Hcl (METFORMIN HCL) 500 Mg Tablet, 500 MG PO BID, TABLET 03/24/14 Propranolol Hcl (PROPRANOLOL HCL) 40 Mg Tablet, 40 MG PO BID, TABLET 03/24/14 Gabapentin (GABAPENTIN) 300 Mg Capsule, 300 MG PO HS, CAPSULE 03/24/14 Constitutional: no symptoms reported EENTM: see HPI Respiratory: see HPI Cardiovascular: no symptoms reported Gastrointestinal: no symptoms reported Genitourinary: no symptoms reported Musculoskeletal: no symptoms reported All Other Systems: Reviewed and Negative Past Medical History Medical History: diabetes, hypertension Surgical History: hysterectomy Social History Alcohol Use: none Drug Use: none Physical Exam General Appearance: alert, no distress Nose: rhinorrhea Throat: pharynx nml, airway nml Neck: nml inspection, supple Respiratory: no resp.distress, breath sounds nml Abdomen: non-tender, no organomegaly CVS: reg rate & rhythm, heart sounds nml Skin: color nml, no rash, warm/dry Extremities: non-tender, nml ROM, no pedal edema NEURO/PSYCH: oriented x 3, CN's nml as tested, motor nml, sensation nml, mood/affect nml Results/Orders Results/Orders Orders - PERCY HECTOR MD Influenza A&B (06/14/20 10:06) Strep Screen (06/14/20 10:06) Vital Signs Date Time Temp Pulse Resp B/P (MAP) Pulse Ox O2 Delivery O2 Flow Rate FiO2 06/14/20 09:54 98.1 93 18 95 06/14/20 09:54 98.1 93 18 134/104 (114) 95 Room Air 06/14/20 09:54 98.1 93 18 Laboratory Tests Test 06/14/20 10:15 Influenza Type A Antigen NEGATIVE (NEG) Influenza B Immunofluorescence NEGATIVE (NEG) Group A Streptococcus Screen NEGATIVE (NEGATIVE) ER DEPART Departure Time of Disposition: 10:45 Disposition: 01 HOME, SELF-CARE Impression: Primary Impression: Acute respiratory infection Condition: Stable Referrals: PCP,UNKNOWN (PCP) PRIMARY CARE PROVIDER Additional Instructions: Mucinex DM OTC as directed Afrin nose drops OTC as directed F/U with your PCP in 1 week Return to ED if worsening or concerns Duration or Time Spent with Pa: 20 min PERCY HECTOR MD Jun 14, 2020 10:12
== END 2020-06-14 10:56 | disposition home or self-care (01) ==
LOC: ER 09:39
DX: J06.9 Acute upper respiratory infection, unspecified (principal); I10 Essential (primary) hypertension; E11.9 Type 2 diabetes mellitus without complications; Z79.899 Other long term (current) drug therapy; Z90.710 Acquired absence of both cervix and uterus; Z79.84 Long term (current) use of oral hypoglycemic drugs
CPT/HCPCS: 87070; 87804; 87880; 99283

== ENCOUNTER → 2020-07-08 | Outpatient (CLI) | payer SELFPAY ==
[~2020-07-08] MED LIST changes: +AMLO-169 PO; +AMLO-170 PO; -AMLO10TA8 PO; -AMLO5TAB10 PO
[2020-07-08 08:58] LABS: MEAN CORP HGB 28.4 pg (26-34); RED CELL DISTRIBUTION WIDTH 12.5 % (11.5-14.5)
[2020-07-08 09:26] LABS: CALCIUM 9.3 mg/dL (8.4-10.5); CARBON DIOXIDE 27.7 mmol/L (20.0-32)
== END | disposition home or self-care (01) ==
LOC: LAB 08:35
PROVIDERS: ATTEND Nurse Practitioner Family
DX: E78.5 Hyperlipidemia, unspecified (principal); E11.9 Type 2 diabetes mellitus without complications; I10 Essential (primary) hypertension; R50.9 Fever, unspecified
CPT/HCPCS: 36415; 80053; 80061; 83036; 84443; 85027

== ENCOUNTER → 2020-11-29 | Outpatient (CLI) | payer SELFPAY, OTHER ==
[2020-11-29 11:47] LABS: MEAN CORP HGB 27.6 pg (26-34)
[2020-11-29 12:15] LABS: CALCIUM 8.7 mg/dL (8.4-10.5); CARBON DIOXIDE 29.3 mmol/L (20.0-32)
--- NOTE | 2020-11-29 12:41 | DIREP ---
PROCEDURE:XRAY ANKLE MIN 3VWS-RT COMPARISON:[facility], , XRAY FOOT MIN 3 VWS-RT, 02/17/2020, 04:58 PM. INDICATIONS:RIGHT ANKLE PAIN/SWELLING FINDINGS: BONES:No acute fracture seen. No aggressive osseous lesion. Plantar spurring. Heterotopic ossification in the region of the plantar fascia distribution to the prior examination. JOINTS:No dislocation. Mild degenerative change of the midfoot. SOFT TISSUES:Mild soft tissue swelling at the ankle. OTHER:No additional findings. CONCLUSION: 1. Mild soft tissue swelling of the ankle. No acute fracture. 2. Stable plantar spurring and heterotopic ossification in the region of the proximal plantar fascia. Dictated by: Adriel Son MD on 11/29/2020 at 12:36 PM
== END | disposition home or self-care (01) ==
LOC: LAB 11:25
PROVIDERS: ATTEND Nurse Practitioner Family
DX: M25.471 Effusion, right ankle (principal); E11.9 Type 2 diabetes mellitus without complications; I10 Essential (primary) hypertension; M25.571 Pain in right ankle and joints of right foot
CPT/HCPCS: 36415; 80053; 80061; 83036; 84550; 85027; 73610-RT

== ENCOUNTER 2020-12-27 16:34 | Emergency (ER) | payer OTHER, SELFPAY ==
[~2020-12-27] VITALS: Ht 165.1 cm; Wt 104.3 kg
[2020-12-27 16:42] VITALS: BP 189/122
[2020-12-27 16:46] VITALS: BP 189/122
--- NOTE | 2020-12-27 16:48 | NUR ---
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
--- NOTE | 2020-12-27 16:51 | NUR ---
BLOOD PRESSURE BLOOD PRESSURE TAMAR ON ASSESSMENT, DOCTOR TOLU WANTS TO GIVE PATIENT MEDICATIONS, PATIENT REFUSED AT THIS TIME.
[2020-12-27 16:52] VITALS: BP 186/117
--- NOTE | 2020-12-27 16:52 | ER.PDOC ---
General Chief Complaint: Toothache Stated Complaint: ABSCESS TOOTH Time seen by MD: 17:00 Source: patient Exam Limitations: no limitations History of Present Illness Timing/Duration: gradual Context: fractured tooth Associated Symptoms: toothache, facial pain Severity: moderate Worsen By: heat, cold Prior symptoms/Treatment: Similar symptoms previous Allergies: Coded Allergies: No Known Allergies (Unverified , 11/27/13) Home Meds Reported Medications Pravastatin Sodium (PRAVASTATIN SODIUM) 10 Mg Tablet, 10 MG PO HS, TABLET 03/24/14 Lisinopril/Hydrochlorothiazide (LISINOPRIL-HCTZ 20-25 MG TAB) 1 Each Tablet, 1 EACH PO DAILY, TABLET 03/24/14 Amlodipine Besylate (AMLODIPINE BESYLATE) 10 Mg Tablet, 10 MG PO DAILY, TABLET 03/24/14 Amlodipine Besylate (AMLODIPINE BESYLATE) 5 Mg Tablet, 5 MG PO DAILY, TABLET 03/24/14 Lisinopril/Hydrochlorothiazide (LISINOPRIL-HCTZ 20-12.5 MG TAB) 1 Each Tablet, 2 EACH PO DAILY, TABLET 03/24/14 Metformin Hcl (METFORMIN HCL) 1,000 Mg Tablet, 1000 MG PO BID, TABLET 03/24/14 Metformin Hcl (METFORMIN HCL) 500 Mg Tablet, 500 MG PO BID, TABLET 03/24/14 Propranolol Hcl (PROPRANOLOL HCL) 40 Mg Tablet, 40 MG PO BID, TABLET 03/24/14 Gabapentin (GABAPENTIN) 300 Mg Capsule, 300 MG PO HS, CAPSULE 03/24/14 Past Medical History Medical History: diabetes, hypertension Surgical History: appendectomy, hysterectomy Social History Alcohol Use: none Drug Use: none Reviewed Nursing Reviewed: Vital Signs, Abn. Noted Constitutional: no symptoms reported Eyes: no symptoms reported Ears: no symptoms reported Nose: no symptoms reported Mouth: no symptoms reported, loose teeth, swelling Throat: no symptoms reported Respiratory: no symptoms reported Cardiovascular: no symptoms reported Gastrointestinal: no symptoms reported Musculoskeletal: no symptoms reported Skin: no symptoms reported Neurological: no symptoms reported Hematologic/Lymphatic: no symptoms reported Immunological/Allergic: no symptoms reported All Other Systems: Reviewed and Negative Physical Exam General Appearance: alert, no distress Head/Neck: (L) maxillary swelling 1 - TENDERNESS L MAXILLA Respiratory: no resp. distress, lungs clear CVS: reg. rate & rhythm, heart sounds nml Abdomen: non-tender, no organomegaly Extremities: non-tender, ROM nml Skin Exam: Normal Color, Warm/Dry NEURO/PSYCH: oriented X3, mood/effect nml Results/Orders Results/Orders Vital Signs Date Time Temp Pulse Resp B/P (MAP) Pulse Ox O2 Delivery O2 Flow Rate FiO2 12/27/20 16:46 98.3 89 18 12/27/20 16:46 98.3 89 18 189/122 (144) 98 Room Air 12/27/20 16:42 98.3 89 18 98 ER DEPART Departure Time of Disposition: 17:00 Disposition: 01 HOME, SELF-CARE Impression: Primary Impression: Abscess of maxilla Condition: Stable Referrals: JEOVANY ASIF (PCP) PRIMARY CARE PROVIDER Duration or Time Spent with Pa: 12M MANUELA MOTLEY MD Dec 27, 2020 16:52
== END 2020-12-27 16:55 | disposition home or self-care (01) ==
LOC: ER 16:34
DX: M27.2 Inflammatory conditions of jaws (principal); K04.7 Periapical abscess without sinus; I10 Essential (primary) hypertension; E11.9 Type 2 diabetes mellitus without complications; Z90.710 Acquired absence of both cervix and uterus; Z79.899 Other long term (current) drug therapy; Z79.84 Long term (current) use of oral hypoglycemic drugs
CPT/HCPCS: 99283

== ENCOUNTER 2021-06-04 18:45 | Emergency (ER) | payer OTHER ==
[~2021-06-04] VITALS: Ht 165.1 cm; Wt 113.4 kg
--- NOTE | 2021-06-04 18:53 | NUR ---
Patient presents with C/O fever, cough. Patient states, "I went to the football game and developed a dry cough. Then today I have had some sinus pressure, worse cough, and now fever and chills. It feels like I have a lot of sinus pressure. My fever was 101 and I took some flu medication and home and that helped some." Patient is alert, no signs of distress noted. Vital signs stable. Patient rates pain 6/10 in forehead and below eyes. No other complaints at this time.
[2021-06-04 19:15] VITALS: BP 143/83
--- NOTE | 2021-06-04 19:23 | ER.PDOC ---
General Chief Complaint: Fever Stated Complaint: POSSIBLE COVID Time seen by MD: 19:21 Source: patient Exam Limitations: no limitations History of Present Illness Initial Comments This is a 55-year-old female with type 2 diabetes, hypertension and obesity who developed a dry cough yesterday and today developed fever and chills. She denies dyspnea. She had both Moderna Covid vaccines a couple months ago. There is been no urinary tract symptoms. She denies vomiting or diarrhea. She states her blood sugar was in the 300 range earlier today and she gave herself insulin. Allergies: Coded Allergies: No Known Allergies (Unverified , 11/27/13) Home Meds Reported Medications Pravastatin Sodium (PRAVASTATIN SODIUM) 10 Mg Tablet, 10 MG PO HS, TABLET 03/24/14 Lisinopril/Hydrochlorothiazide (LISINOPRIL-HCTZ 20-25 MG TAB) 1 Each Tablet, 1 EACH PO DAILY, TABLET 03/24/14 Amlodipine Besylate (AMLODIPINE BESYLATE) 10 Mg Tablet, 10 MG PO DAILY, TABLET 03/24/14 Amlodipine Besylate (AMLODIPINE BESYLATE) 5 Mg Tablet, 5 MG PO DAILY, TABLET 03/24/14 Lisinopril/Hydrochlorothiazide (LISINOPRIL-HCTZ 20-12.5 MG TAB) 1 Each Tablet, 2 EACH PO DAILY, TABLET 03/24/14 Metformin Hcl (METFORMIN HCL) 1,000 Mg Tablet, 1000 MG PO BID, TABLET 03/24/14 Metformin Hcl (METFORMIN HCL) 500 Mg Tablet, 500 MG PO BID, TABLET 03/24/14 Propranolol Hcl (PROPRANOLOL HCL) 40 Mg Tablet, 40 MG PO BID, TABLET 03/24/14 Gabapentin (GABAPENTIN) 300 Mg Capsule, 300 MG PO HS, CAPSULE 03/24/14 Constitutional: chills, fever EENTM: denies eye pain, denies double vision Respiratory: cough; denies shortness of breath Cardiovascular: denies chest pain, denies syncope Gastrointestinal: denies abdominal pain, denies vomiting Genitourinary: denies dysuria, denies hematuria Musculoskeletal: denies back pain, denies joint pain Skin: denies lesions, denies rash Psychiatric/Neurological: denies anxiety, denies depressed Endocrine: denies increased thrist, denies increased urine Hematologic/Lymphatic: denies easy bleeding, denies easy bruising Past Medical History Medical History: diabetes, hypertension Surgical History: hysterectomy Social History Smoking: non-smoker Alcohol Use: none Drug Use: none Physical Exam General Appearance: alert, no distress Eye: eyes nml inspection Nose: nose nml Throat: pharynx nml Neck: nml inspection, supple Respiratory: no resp.distress, breath sounds nml Abdomen: non-tender CVS: heart sounds nml, tachycardia Skin: color nml, no rash, warm/dry Extremities: nml ROM, no pedal edema NEURO/PSYCH: oriented x 3, CN's nml as tested, motor nml, sensation nml, mood/affect nml Results/Orders Results/Orders Orders - JOSEFINA SHINE MD Covid19 Antigen Mikala Alaina (06/04/21 19:19) Xr Chest 1v (06/04/21 19:19) Accucheck Prn (06/04/21 19:19) Vital Signs Date Time Temp Pulse Resp B/P (MAP) Pulse Ox O2 Delivery O2 Flow Rate FiO2 06/04/21 19:15 99.1 96 18 96 06/04/21 19:15 99.1 96 18 143/83 (103) 96 Room Air 06/04/21 19:15 99.1 96 18 Laboratory Tests Test 06/04/21 18:58 06/04/21 19:37 SARS-CoV-2 Antigen (Rapid) NEGATIVE (NEGATIVE) POC Glucose 207 (70 - 110) H ER DEPART Departure Time of Disposition: 20:11 Disposition: 01 HOME / SELF CARE / HOMELESS Impression: Primary Impression: Viral upper respiratory infection Condition: Stable Patient Instructions: Fever of Unknown Origin, Upper Respiratory Infection, Adult Referrals: JEOVANY ASIF (PCP) PRIMARY CARE PROVIDER Duration or Time Spent with Pa: 10 JOSEFINA SHINE MD Jun 04, 2021 19:23
--- NOTE | 2021-06-04 19:38 | NUR ---
FSBS checked 207.
--- NOTE | 2021-06-04 19:42 | DIREP ---
PROCEDURE:CHEST 1 VIEW COMPARISON:None. INDICATIONS:cough, fever FINDINGS: LUNGS/PLEURA:No significant pulmonary parenchymal abnormalities. No effusions. VASCULATURE:Normal. Unremarkable pulmonary vasculature. CARDIAC:Normal. No cardiac silhouette abnormality or cardiomegaly. MEDIASTINUM:Normal. No visible mass or adenopathy. BONES:Normal. No fracture or visible bony lesion. OTHER:Negative. CONCLUSION:Normal examination. Dictated by: Marcos Vicente DO on 06/04/2021 at 07:40 PM
== END 2021-06-04 20:38 | disposition home or self-care (01) ==
LOC: ER 18:45
DX: J06.9 Acute upper respiratory infection, unspecified (principal); E11.9 Type 2 diabetes mellitus without complications; I10 Essential (primary) hypertension; Z20.822 Contact with and (suspected) exposure to COVID-19; Z79.4 Long term (current) use of insulin; Z79.899 Other long term (current) drug therapy; Z90.710 Acquired absence of both cervix and uterus
CPT/HCPCS: 71045; 82948; 87426; 99284

== ENCOUNTER 2021-09-30 16:09 | Emergency (ER) | payer OTHER ==
[~2021-09-30 16:09] MED LIST changes: -LISI1TAB20 PO; +LISI1TAB41 PO
== END 2021-09-30 17:13 | disposition left against medical advice (07) ==
LOC: ER 16:09
DX: M79.646 Pain in unspecified finger(s) (principal); Z53.21 Procedure and treatment not carried out due to patient leaving prior to being seen by health care provider

== ENCOUNTER 2021-10-10 09:43 | Emergency (ER) | payer OTHER ==
[~2021-10-10] VITALS: Ht 165.1 cm; Wt 102.1 kg
[2021-10-10 10:02] VITALS: BP 175/84
--- NOTE | 2021-10-10 10:28 | ER.PDOC ---
General Chief Complaint: Cough/Congestion Stated Complaint: CONGESTION,COUGH Time seen by MD: 10:22 Source: patient Exam Limitations: no limitations History of Present Illness Timing/Duration: gradual Severity: moderate Associated Symptoms: runny nose, sinus pain/drainage, sore throat, hoarseness Allergies: Coded Allergies: No Known Allergies (Unverified , 11/27/13) Home Meds Reported Medications Pravastatin Sodium (PRAVASTATIN SODIUM) 10 Mg Tablet, 10 MG PO HS, TABLET 03/24/14 Lisinopril/Hydrochlorothiazide (LISINOPRIL-HCTZ 20-25 MG TAB) 1 Each Tablet, 1 EACH PO DAILY, TABLET 03/24/14 Amlodipine Besylate (AMLODIPINE BESYLATE) 10 Mg Tablet, 10 MG PO DAILY, TABLET 03/24/14 Amlodipine Besylate (AMLODIPINE BESYLATE) 5 Mg Tablet, 5 MG PO DAILY, TABLET 03/24/14 Lisinopril/Hydrochlorothiazide (LISINOPRIL-HCTZ 20-12.5 MG TAB) 1 Each Tablet, 2 EACH PO DAILY, TABLET 03/24/14 Metformin Hcl (METFORMIN HCL) 1,000 Mg Tablet, 1000 MG PO BID, TABLET 03/24/14 Metformin Hcl (METFORMIN HCL) 500 Mg Tablet, 500 MG PO BID, TABLET 03/24/14 Propranolol Hcl (PROPRANOLOL HCL) 40 Mg Tablet, 40 MG PO BID, TABLET 03/24/14 Gabapentin (GABAPENTIN) 300 Mg Capsule, 300 MG PO HS, CAPSULE 03/24/14 All Other Systems: Reviewed and Negative Past Medical History Medical History: diabetes, hypertension Surgical History: hysterectomy Social History Alcohol Use: none Drug Use: none Reviewed Nursing Reviewed: Vital Signs, Abn. Noted Physical Exam General Appearance: alert, no distress Eye: eyes nml inspection, lids & conjunct. nml, PERRL, no nystagmus Ear: ear nml Nose: nose nml Throat: pharynx nml, airway nml Neck: nml inspection, supple Respiratory: no resp.distress, breath sounds nml Abdomen: non-tender, no organomegaly CVS: reg rate & rhythm, heart sounds nml Skin: color nml, no rash, warm/dry Extremities: non-tender, nml ROM, no pedal edema NEURO/PSYCH: oriented x 3, CN's nml as tested, motor nml, sensation nml, mood/affect nml Results/Orders Results/Orders Orders - MANUELA MOTLEY MD Covid19 Antigen Mikala Alaina (10/10/21 10:16) Strep Screen (10/10/21 10:16) Vital Signs Date Time Temp Pulse Resp B/P (MAP) Pulse Ox O2 Delivery O2 Flow Rate FiO2 10/10/21 10:02 97.8 94 18 175/84 (114) 95 Room Air 10/10/21 10:02 97.8 94 20 95 10/10/21 10:02 97.8 94 18 Laboratory Tests Test 10/10/21 10:05 SARS-CoV-2 Antigen (Rapid) NEGATIVE (NEGATIVE) ER DEPART Departure Time of Disposition: 11:00 Disposition: 01 HOME / SELF CARE / HOMELESS Impression: Primary Impression: Acute pharyngitis Condition: Stable Referrals: LIZ SORIA MD (PCP) PRIMARY CARE PROVIDER Duration or Time Spent with Pa: 13m MANUELA MOTLEY MD Oct 10, 2021 10:28
== END 2021-10-10 11:06 | disposition home or self-care (01) ==
LOC: ER 09:43
DX: J02.9 Acute pharyngitis, unspecified (principal); I10 Essential (primary) hypertension; E11.9 Type 2 diabetes mellitus without complications; Z20.822 Contact with and (suspected) exposure to COVID-19; Z79.84 Long term (current) use of oral hypoglycemic drugs; Z79.899 Other long term (current) drug therapy; Z90.710 Acquired absence of both cervix and uterus
CPT/HCPCS: 87070; 87426; 87880; 99283

== ENCOUNTER 2022-01-29 19:58 | Emergency (ER) | payer OTHER ==
[~2022-01-29] VITALS: Ht 165.1 cm; Wt 102.1 kg
[2022-01-29 20:55] VITALS: BP 151/88
--- NOTE | 2022-01-29 20:55 | NUR ---
ARRIVAL AMBULATED TO ROOM. ALERT AND ORIENTED X3. GAIT STEADY. FELL 1 MONTH AGO ON ELBOW IN SNOW WENT TO PCP AND TOOK STERIODS, BUT DID NOT HAVE XRAY. TODAY WHILE TAKING CARE OF DISABLED CHILD THE PAIN IN ELBOW HAS COME BACK 05/10. HAS RANGE OF MOTION IN LEFT UPPER EXT. SKIN INTACT. PULSES PALABLE. NOTED DR. GREER. ORDER FOR XRAY TO LEFT ELBOW.
--- NOTE | 2022-01-29 21:12 | NUR ---
CRITICAL LAB INFLUENZA A&B AND COVID NEGATIVE. NOTIFIED DR. GREER. NO NEW ORDERS AT THIS TIME.
--- NOTE | 2022-01-29 21:16 | DIREP ---
PROCEDURE:XRAY ELBOW 2VWS-LT COMPARISON:[facility], , XRAY ELBOW 2VWS-LT, 07/26/2019, 09:35 PM. INDICATIONS:ELBOW PAIN FINDINGS: BONES:Small osteophyte at the coronoid process. JOINTS:Normal. No displaced anterior or posterior fat pads. SOFT TISSUES:Normal. OTHER:Normal. CONCLUSION:Mild degenerative changes. Dictated by: Samy Tovar M.D. on 01/29/2022 at 09:15 PM
--- NOTE | 2022-01-29 21:27 | ER.PDOC ---
General Chief Complaint: Extremities Stated Complaint: LEFT ELBOW Time seen by MD: 21:24 Source: patient Exam Limitations: no limitations History of Present Illness Initial Comments Left elbow pain after lifting her child up this afternoon. She injured same elbow a month ago. She is here requesting for x-rays. Occurred: this afternoon Where: home Severity: moderate Modifying Factors: pain on movement Allergies: Coded Allergies: No Known Allergies (Unverified , 11/27/13) Home Meds Reported Medications Pravastatin Sodium (PRAVASTATIN SODIUM) 10 Mg Tablet, 10 MG PO HS, TABLET 03/24/14 Lisinopril/Hydrochlorothiazide (LISINOPRIL-HCTZ 20-25 MG TAB) 1 Each Tablet, 1 EACH PO DAILY, TABLET 03/24/14 Amlodipine Besylate (AMLODIPINE BESYLATE) 10 Mg Tablet, 10 MG PO DAILY, TABLET 03/24/14 Amlodipine Besylate (AMLODIPINE BESYLATE) 5 Mg Tablet, 5 MG PO DAILY, TABLET 03/24/14 Lisinopril/Hydrochlorothiazide (LISINOPRIL-HCTZ 20-12.5 MG TAB) 1 Each Tablet, 2 EACH PO DAILY, TABLET 03/24/14 Metformin Hcl (METFORMIN HCL) 1,000 Mg Tablet, 1000 MG PO BID, TABLET 03/24/14 Metformin Hcl (METFORMIN HCL) 500 Mg Tablet, 500 MG PO BID, TABLET 03/24/14 Propranolol Hcl (PROPRANOLOL HCL) 40 Mg Tablet, 40 MG PO BID, TABLET 03/24/14 Gabapentin (GABAPENTIN) 300 Mg Capsule, 300 MG PO HS, CAPSULE 03/24/14 Past Medical History Medical History: diabetes, hypertension Surgical History: hysterectomy Family History Significant Family History: no pertinent family hx Social History Smoking: non-smoker Alcohol Use: none Drug Use: none Review of Systems Constitutional: no symptoms reported EENTM: no symptoms reported Respiratory: no symptoms reported Cardiovascular: no symptoms reported Gastrointestinal: no symptoms reported Musculoskeletal: see HPI All Other Systems: Reviewed and Negative Physical Exam General Appearance: Alert, No Apparent Distress Hand: nml inspection, non-tender Wrist: nml inspection, non-tender, nml ROM Forearm/Elbow: tenderness (left elbow without swelling or deformity) Arm/Shoulder: nml inspection, non-tender, nml ROM Neuro/Vasc/Tendon: sensation nml, motor nml, no vascular compromise, tendon function nml Skin: warm/dry Head/ENT: nml inspection, pharynx nml Neck/Back: nml inspection, non-tender Respiratory: chest non-tender, breath sounds nml CVS: heart sounds normal Abdomen: non-tender, no organomegaly Results/Orders Results/Orders Orders - PERCY HECTOR MD Xr Elbow Lt (01/29/22 21:00) Vital Signs Date Time Temp Pulse Resp B/P (MAP) Pulse Ox O2 Delivery O2 Flow Rate FiO2 01/29/22 20:55 98.9 93 20 01/29/22 20:55 98.9 93 20 96 01/29/22 20:55 98.9 93 20 151/88 (109) 96 Room Air* 0 21 Progress Progress X-rays of left elbow shows mild degenerative changes without acute fracture. ER DEPART Departure Time of Disposition: 21:25 Disposition: 01 HOME / SELF CARE / HOMELESS Impression: Primary Impression: Elbow pain, left Additional Impression: Sprain of elbow, left Condition: Stable Referrals: LIZ SORIA MD (PCP) PRIMARY CARE PROVIDER Additional Instructions: Ice Ibuprofen Follow-up with your PCP in 1 week Return to ED if worsening or concerns Duration or Time Spent with Pa: 10 min Problem Qualifiers Additional Impression: Sprain of elbow, left Encounter type: initial encounter Qualified Codes: S53.402A - Unspecified sprain of left elbow, initial encounter PERCY HECTOR MD January 29, 2022 21:27
[2022-01-29 21:30] VITALS: BP 156/88
[2022-01-29 21:31] VITALS: BP 156/88
== END 2022-01-29 21:34 | disposition home or self-care (01) ==
LOC: ER 19:58
DX: S53.402A Unspecified sprain of left elbow, initial encounter (principal); M25.522 Pain in left elbow; E11.9 Type 2 diabetes mellitus without complications; I10 Essential (primary) hypertension; X50.0XXA Overexertion from strenuous movement or load, initial encounter; Y93.89 Activity, other specified; Y92.009 Unspecified place in unspecified non-institutional (private) residence as the place of occurrence of the external cause; Y99.8 Other external cause status; Z90.710 Acquired absence of both cervix and uterus
CPT/HCPCS: 99283; 73070-LT